=== PATIENT | male | born 1995 | race Caucasian/White ===

== ENCOUNTER 2020-10-23 18:34 | Emergency (ER) | payer OTHER ==
[2020-10-23] MEDS ORDERED: Diphtheria,Pertussis(Acell),Tetanus Vaccine 0.5 ML Syringe IM ONE ×3 (19:11→20:52)
[2020-10-23] MEDS ORDERED: Lidocaine 1% 10 ML MDV INJECT ONE (19:11)
--- NOTE | 2020-10-23 19:41 | EDM.PDOC ---
ED HPI GENERAL MEDICAL PROBLEM - General Chief Complaint: Upper Extremity Injury/Pain Stated Complaint: CRUSHED 2 FINGERS ON LEFT HAND Time Seen by Provider: 10/23/20 19:10 Source of Information: Reports: Patient - History of Present Illness INITIAL COMMENTS - FREE TEXT/NARRATIVE: History of present illness: 24-year-old male presenting with left hand injury. Patient works in oil field and apparently the left hand was crushed about 1 hour prior to arrival. The middle and ring fingers were injured. The middle finger has an open wound with excess mobility of the mid and distal finger, suspect partial amputation. No other areas of pain or injury. The patient is not sure when his last tetanus was. Review of systems: As per history of present illness and below otherwise all systems reviewed and negative. Past medical history: As per history of present illness and as reviewed below otherwise noncontributory. Herpes Surgical history: As per history of present illness and as reviewed below otherwise noncontributory. Fracture repair Social history: No reported history of drug or alcohol abuse. Tobacco and chewing tobacco Family history: As per history of present illness and as reviewed below otherwise noncontributory. Physical exam: GEN: no acute distress, well appearing HEENT: Atraumatic, normocephalic, mucous membranes moist, Neck: supple, nontender, trachea midline. Lungs: No respiratory distress. Heart: RRR Abdomen: Nondistended Back: Range of motion Extremities: Right hand unremarkable. Left hand with large crush injury/macerated laceration of the middle (2 cm )and ring finger (1 cm) with medial deviation of the middle finger/excess mobility at the middle phalanx concerning for open fracture. Both middle and ring finger also have a small punctate lacerations just at the level of the tuft. Left ring finger with distal laceration into the nailbed. Distally neurovascularly intact all 5 fingers of the left hand. Tender to palpation only in the middle and ring fingers. Remainder of hand and other fingers are nontender. Wrist nontender. Neuro: Awake, alert, oriented. Neuro Exam nonfocal. Skin: warm, lacerations as described above with active bleeding. Ecchymosis. Diagnostics: X-ray left hand shows comminuted distal tuft fractures of middle and ring finger Therapeutics: Lidocaine digital block, tetanus MDM: Impression: Open fracture left middle and ring fingers Plan: Loose closure per discussion with hand surgery, antibiotics and follow-up in hand clinic Definitive disposition and diagnosis as appropriate pending reevaluation and review of above. - Related Data Allergies Allergy/AdvReac Type Severity Reaction Status Date / Time No Known Allergies Allergy Verified 10/23/20 19:16 Home Meds: Home Meds Acetaminophen/HYDROcodone [HYDROcodone-Acetaminophen 5-525 MG *] 1 tab PO Q8H PRN #10 each 10/23/20 [Rx] cephALEXin [Keflex] 1,000 mg PO BID #40 cap 10/23/20 [Rx] Past Medical History - Infectious Disease History Infectious Disease History: Reports: Herpes Social & Family History - Family History Family Medical History: No Pertinent Family History - Tobacco Use Tobacco Use Status *Q: Never Tobacco User - Recreational Drug Use Recreational Drug Use: No Review of Systems - Review of Systems Review Of Systems: See Below (See dictation) ED EXAM, GENERAL - Physical Exam Exam: See Below (See dictation) ED TRAUMA EXTREMITY PROCEDURES - Laceration/Wound Repair Left Digit - 3rd (Middle) Lac/Wound Length In cm: 2 Appearance: Subcutaneous, Moderately Contaminated Distal NVT: Neuro & Vascular Intact Anesthetic Type: Digital Local Anesthesia - Lidocaine (Xylocaine): 1% Plain Local Anesthetic Volume: 3cc Skin Prep: Providone-Iodine (Betadine) Saline Irrigation (cc's): 300 Exploration/Debridement/Repair: Wound Explored, Explored to Base, Minimal Debridement, No Foreign Material Found, Multiple Flaps Aligned Closed With: Sutures Suture Size: 5-0 # of Sutures: 7 Suture Type: Prolene Sterile Dressing Applied: Nurse Tetanus Status Addressed: Yes Complications: No Left Digit - 4th (Ring) Lac/Wound Length In cm: 1 Appearance: Superficial Distal NVT: Neuro & Vascular Intact Anesthetic Type: Digital Local Anesthesia - Lidocaine (Xylocaine): 1% Plain Local Anesthetic Volume: 3cc Skin Prep: Providone-Iodine (Betadine), Saline Saline Irrigation (cc's): 120 Exploration/Debridement/Repair: Wound Explored, Minimal Debridement, Minimally Undermined Closed With: Sutures Suture Size: 5-0 # of Sutures: 2 Suture Type: Prolene Sterile Dressing Applied: Nurse Tetanus Status Addressed: Yes Complications: No - Splinting Left 3rd Digit Splint Site: Middle finger Pre-Procedure NV Status: Normal Post-Procedure NV Status: Normal Splint Material: Aluminum-Foam Splint Design: Other (Finger) Applied & Form Fitted By: Nurse Provider Post-Splint Application NV Check: NV Status Normal Left 4th Digit Splint Site: Left ring finger Pre-Procedure NV Status: Normal Post-Procedure NV Status: Normal Splint Material: Aluminum-Foam Splint Design: Other (Finger) Applied & Form Fitted By: Nurse Provider Post-Splint Application NV Check: NV Status Normal Complications: No Course - Vital Signs Text/Narrative:: DME: Type: Aluminum foam splint left middle and ring fingers Applied by: Nurse Reason: Open fracture Benefit to patient: Stabilization of fracture Length of use: Until cleared by orthopedic Last Recorded V/S: Last Vital Signs Temp 97 F 10/23/20 19:14 Pulse 78 10/23/20 19:14 Resp 20 10/23/20 19:14 BP 110/68 10/23/20 19:14 Pulse Ox 100 10/23/20 19:14 - Orders/Labs/Meds Orders: Active Orders 24 hr Category Date Time Status DME for Discharge [COMM] Stat Oth 10/23/20 21:10 Ordered Meds: Medications Discontinued Medications Generic Name Dose Route Start Last Admin Trade Name Freq PRN Reason Stop Dose Admin Hydrocodone Bitart/Acetaminophen 1 tab 10/23/20 20:00 10/23/20 20:52 Acetaminophen/Hydrocodone 325-5 Mg Tab PO 10/23/20 20:01 1 tab ONETIME ONE Administration Diphtheria/Tetanus/Acell Pertussis 0.5 ml 10/23/20 19:11 10/23/20 20:43 Diphtheria,Pertussis(Acell),Tetanus Vaccine 0.5 Ml Syringe IM 10/23/20 19:12 Not Given .ONCE ONE Diphtheria/Tetanus/Acell Pertussis 0.5 ml 10/23/20 20:49 10/23/20 20:50 Diphtheria,Pertussis(Acell),Tetanus Vaccine 0.5 Ml Syringe IM 10/23/20 20:50 Not Given .ONCE ONE Diphtheria/Tetanus/Acell Pertussis 0.5 ml 10/23/20 20:52 10/23/20 20:57 Diphtheria,Pertussis(Acell),Tetanus Vaccine 0.5 Ml Syringe IM 10/23/20 20:53 0.5 ml .ONCE ONE Administration Cefazolin Sodium/Dextrose 1 gm 50 mls @ 100 mls/hr 10/23/20 21:08 10/23/20 22:48 / Premix IV 10/23/20 21:37 100 mls/hr ONETIME ONE Administration Cefazolin Sodium/Dextrose 1 gm 50 mls @ 100 mls/hr 10/23/20 21:09 10/23/20 22:47 / Premix IV 10/23/20 21:38 100 mls/hr ONETIME ONE Administration Ibuprofen 600 mg 10/23/20 20:00 10/23/20 20:52 Ibuprofen 600 Mg Tab PO 10/23/20 20:01 600 mg ONETIME ONE Administration Lidocaine HCl 10 ml 10/23/20 19:11 10/23/20 20:53 Lidocaine 1% 10 Ml Mdv INJECT 10/23/20 19:12 Not Given ONETIME ONE Lidocaine HCl Confirm 10/23/20 19:19 10/23/20 20:42 Lidocaine 1% 5 Ml Sdv Administered 10/23/20 19:20 Not Given Dose 10 ml .ROUTE .STK-MED ONE Tetanus/Diphtheria Toxoids 0.5 ml 10/23/20 20:49 10/23/20 20:54 Diphtheria/Tetanus Toxoids,Adult (Td) 0.5 Ml Syringe IM 10/23/20 20:50 Not Given .ONCE ONE - Re-Assessments/Exams Free Text/Narrative Re-Assessment/Exam: 10/23/20 21:02 Patient reassessed. He is feeling better. Results discussed with the patient. Discussed plan for discussion with hand surgery. Call to Dr. Florina Galvan, hand surgeon Recommends washout and loose closure, nonadherent dressing, 2 g of Ancef and Keflex for home, finger splints and he will see him in the office Tuesday at 8:30 AM. 10/23/20 21:11 This was all discussed with the patient. Discussed plan for loose closure. He agrees with this plan. 10/23/20 22:11 The patient tolerated suturing well. All plans discussed with the patient. Nursing will give Ancef now. Discussed plan for outpatient antibiotics and hand surgery follow-up. He agrees with this plan. Placed in dressing and finger splints Departure - Departure Time of Disposition: 22:11 Disposition: Home, Self-Care 01 Clinical Impression: Open fracture of finger of left hand - Discharge Information Prescriptions: Acetaminophen/HYDROcodone [HYDROcodone-Acetaminophen 5-525 MG *] 1 tab PO Q8H PRN #10 each PRN Reason: Pain (Severe 7-10) cephALEXin [Keflex] 1,000 mg PO BID #40 cap Instructions: Finger Fracture, Adult, [id number], Crush Injury of the Hand, [id number], Pain Medicine Instructions, [id number] Referrals: Torres Heaton [Ordering Only Provider] - 2 Days Forms: ED Department Discharge Additional Instructions: Please follow-up with the hand surgeon listed above. They will see you in the clinic. They requested you come to the clinic at 830 on Tuesday morning. Please take the antibiotics as prescribed. You may take the pain medicines if needed for severe pain. Please also take ibuprofen 600 mg every 8 hours on a set schedule. Keep the wounds clean and dry and keep the splint on to help immobilize the fractures. Return to the ER if you develop a high fever, severe or worsening pain or any other concerning symptoms. The following information is given to patients seen in the emergency department who are being discharged to home. This information is to outline your options for follow-up care. We provide all patients seen in our emergency department with a follow-up referral. The need for follow-up, as well as the timing and circumstances, are variable depending upon the specifics of your emergency department visit. If you don't have a primary care physician on staff, we will provide you with a referral. We always advise you to contact your personal physician following an emergency department visit to inform them of the circumstance of the visit and for follow-up with them and/or the need for any referrals to a consulting specialist. The emergency department will also refer you to a specialist when appropriate. This referral assures that you have the opportunity for follow-up care with a specialist. All of these measure are taken in an effort to provide you with optimal care, which includes your follow-up. Under all circumstances we always encourage you to contact your private physician who remains a resource for coordinating your care. When calling for follow-up care, please make the office aware that this follow-up is from your recent emergency room visit. If for any reason you are refused follow-up, please contact the [facility] Emergency Department at and asked to speak to the emergency department charge nurse. [facility] [address] [place] [address] [facility] [address] [place] [id number] Sepsis Event Note (ED) - Evaluation Sepsis Screening Result: No Definite Risk - Focused Exam Vital Signs: Vital Signs Temp Pulse Resp BP Pulse Ox 10/23/20 19:14 97 F 78 20 110/68 100 - My Orders Last 24 Hours: My Active Orders 10/23/20 21:10 DME for Discharge [COMM] Stat - Assessment/Plan Last 24 Hours: My Active Orders 10/23/20 21:10 DME for Discharge [COMM] Stat
[2020-10-23] MEDS ORDERED: Ibuprofen 600 MG Tab PO ONE (20:00)
[2020-10-23] MEDS ORDERED: Acetaminophen/HYDROcodone 325-5 MG Tab PO ONE (20:00)
--- NOTE | 2020-10-23 20:48 | CR ---
INDICATION: Crush injury to 3rd and 4th digits. TECHNIQUE: Hand radiograph 3 views COMPARISON: None FINDINGS: There is a displaced, comminuted fracture at the distal margin of the left 3rd distal phalanx. The distal fracture component is displaced in ulnar direction with adjacent soft tissue swelling. There is associated terminal tuft fracture of the 4th digit without displacement, noted on lateral view. IMPRESSION: 1. Comminuted, displaced terminal tuft fracture of left 3rd finger. 2. Nondisplaced terminal tuft fracture, left 4th finger. Dictated by Jose Maravilla MD @ 10/23/2020 8:46:[address] Jose Maravilla @ Oct 23 2020 8:46PM
[2020-10-23] MEDS ORDERED: Diphtheria/Tetanus Toxoids,Adult (Td) 0.5 ML Syringe IM ONE (20:49)
[2020-10-23] MEDS ORDERED: ceFAZolin 1 GM in Premix Bag 1 BAG IV ONE ×2 (21:08→21:09)
== END 2020-10-23 22:49 | disposition home or self-care (01) ==
LOC: MW.ED 18:34
DX: S62.625B Displaced fracture of middle phalanx of left ring finger, initial encounter for open fracture (principal); Z23 Encounter for immunization; W23.0XXA Caught, crushed, jammed, or pinched between moving objects, initial encounter
CPT/HCPCS: 12002; 73130; 90471; 90715; 96374; 99283; A9270; J0690